=== PATIENT | female | born 1940 | race Caucasian/White ===

== ENCOUNTER 2022-06-17 11:20 | Inpatient (IN) | payer MEDICARE, BC ==
[~2022-06-17] VITALS: Ht 157.5 cm; Wt 59.0 kg
[2022-06-17] MEDS ORDERED: ATOR10TA PO (11:33)
[2022-06-17] MEDS ORDERED: AMLO2.5T2 PO (11:33)
[2022-06-17] MEDS ORDERED: ASPI-612 PO (11:33)
[2022-06-17] MEDS ORDERED: ESCI5TAB PO (11:33)
[2022-06-17] MEDS ORDERED: TRAZ-182 PO (11:33)
[2022-06-17] MEDS ORDERED: LIDO30CR TP (11:33)
[2022-06-17] MEDS ORDERED: METO-356 PO (11:42)
[2022-06-17] MEDS ORDERED: FLUT1DIS27 IH (11:42)
[2022-06-17] MEDS ORDERED: CHOL10005 PO (11:42)
[2022-06-17] MEDS ORDERED: IV NORMAL SALINE 1000 ML BAG IV ONE ×2 (12:15→13:45)
[2022-06-17 12:53] LABS: MEAN CORPUSCULAR HEMOGLOBIN 29.8 uug (24.7-32.8); MEAN CORPUSCULAR VOLUME 90.9 fL (75.5-95.3); PLATELET COUNT (AUTO) 719 K/uL (179-408)
[2022-06-17 13:03] LABS: CARBON DIOXIDE 27 mmol/L (21-32); CHLORIDE 97 mmol/L (98-107); CREATININE 0.8 mg/dL (0.6-1.3); GLUCOSE 111 mg/dL (74-106); POTASSIUM 2.9 mmol/L (3.5-5.1); UREA NITROGEN, BLOOD 6 mg/dL (7-18)
[2022-06-17 13:12] LABS: ALANINE AMINOTRANSFERASE 38 U/L (14-59); ALKALINE PHOSPHATASE 137 U/L (50-136); ASPARTATE AMINOTRANSFERASE 23 U/L (15-37); BILIRUBIN,DIRECT 0.3 mg/dL (0.0-0.2); BILIRUBIN,TOTAL 1.4 mg/dL (0.2-1.0); TOTAL PROTEIN, SERUM 8.4 g/dL (6.4-8.2)
[2022-06-17] MEDS ORDERED: POTASSIUM CHLORIDE 20 MEQ TAB.PRT.SR PO ONE ×3 (13:45→22:00)
[2022-06-17] MEDS ORDERED: CEFTRIAXONE 1 G in IV DEXTROSE 5% 50 ML IV ONE (13:45)
[2022-06-17] MEDS ORDERED: POTASSIUM CHLORIDE 20 MEQ TAB.PRT.SR ONE (13:47)
[2022-06-17] MEDS ORDERED: CEFTRIAXONE /D5W 50ML IVPB **ER PYXIS IV ONE (13:48)
[2022-06-17] MEDS ORDERED: POTASSIUM CHLORIDE 200 ML ONE (13:49)
[2022-06-17] MEDS: POTASSIUM CHLORIDE 50 ML IV SCH ×4 (13:54→16:45)
[2022-06-17 14:21] LABS: *BILIRUBIN,URIN NEGATIVE (NEGATIVE); *BLOOD, URINE 1+ (NEGATIVE); *CLARITY,URINE CLEAR (CLEAR); *COLOR,URINE YELLOW (YELLOW); *KETONES,URINE NEGATIVE (NEGATIVE); LEUKOCYTE ESTERASE ,URINE NEGATIVE (NEGATIVE); NITRITE, URINE NEGATIVE (NEGATIVE); UGLUCOSE NEGATIVE (NEGATIVE)
[2022-06-17] MEDS ORDERED: ONDANSETRON 4 MG/2 ML VIAL IV PRN (14:30)
[2022-06-17] MEDS ORDERED: MAGNESIUM HYDROXIDE 30 ML LIQUID UDC PO PRN (14:30)
[2022-06-17] MEDS: IV NS 1000 ML 1,000 ML IV PRN (16:22)
[2022-06-17 16:30] VITALS: BP_SYST 157; BP_SYST 164; BP_SYST 166; BP_DIAS 83; BP_DIAS 86; BP_DIAS 90
[2022-06-17 16:47] LABS: WBC,URINE 0-3 /HPF (0-3)
[2022-06-17] MEDS ORDERED: FLUTICASONE/SALMETEROL 100/50 1 INH DISK.W.DEV IH SCH (17:00)
[2022-06-17 20:00] VITALS: BP 148/70
[2022-06-17] MEDS: ATORVASTATIN 10 MG TABLET PO SCH (21:09)
[2022-06-17] MEDS: TRAZODONE 50 MG TABLET PO SCH (21:09)
[2022-06-17] MEDS: ENOXAPARIN SODIUM 40 MG/0.4 ML DISP.SYRIN SQ SCH (21:10)
[2022-06-18] VITALS: BP 150/72
[2022-06-18] MEDS: HYDROCODONE/APAP 5-325MG TABLET PO PRN ×2 (01:22→21:36)
[2022-06-18 04:00] VITALS: BP 144/72
[2022-06-18] MEDS: PANTOPRAZOLE SODIUM 40 MG TABLET.DR PO SCH (06:17)
[2022-06-18 07:14] LABS: MEAN CORPUSCULAR HEMOGLOBIN 29.9 uug (24.7-32.8); MEAN CORPUSCULAR VOLUME 90.8 fL (75.5-95.3); PLATELET COUNT (AUTO) 648 K/uL (179-408)
[2022-06-18 07:31] LABS: CREATININE 0.7 mg/dL (0.6-1.3); MAGNESIUM 1.7 mg/dL (1.8-2.4); PHOSPHOROUS 3.5 mg/dL (2.5-4.9); POTASSIUM 3.9 mmol/L (3.5-5.1)
[2022-06-18] MEDS: ESCITALOPRAM OXALATE 10 MG TABLET PO SCH (08:30)
[2022-06-18] MEDS: CHOLECALCIFEROL 1,000 UNIT TABLET PO SCH (08:31)
[2022-06-18] MEDS: FLUTICASONE/VILANTEROL 1 EACH BLST.W.DEV INH SCH (08:32)
[2022-06-18] MEDS: ASPIRIN 81 MG TAB.CHEW PO SCH (08:46)
[2022-06-18] MEDS ORDERED: ASPIRIN 325 MG TABLET PO SCH (09:00)
[2022-06-18] MEDS ORDERED: MAGNESIUM OXIDE 400 MG TABLET PO ONE (11:15)
[2022-06-18 11:57] VITALS: BP 140/66
[2022-06-18 16:00] VITALS: BP 152/83
[2022-06-18] MEDS: IV NS 1000 ML 1,000 ML IV PRN (17:56)
[2022-06-18 20:30] VITALS: BP 158/85
[2022-06-18] MEDS: ENOXAPARIN SODIUM 40 MG/0.4 ML DISP.SYRIN SQ SCH (20:32)
[2022-06-18] MEDS: ATORVASTATIN 10 MG TABLET PO SCH (20:32)
[2022-06-18] MEDS: TRAZODONE 50 MG TABLET PO SCH (20:32)
[2022-06-19 00:18] VITALS: BP 150/80
[2022-06-19 04:16] VITALS: BP 156/88
[2022-06-19] MEDS: HYDROCODONE/APAP 5-325MG TABLET PO PRN ×2 (05:36→20:12)
[2022-06-19] MEDS: PANTOPRAZOLE SODIUM 40 MG TABLET.DR PO SCH (06:07)
[2022-06-19 07:38] VITALS: BP 124/71
[2022-06-19] MEDS: ASPIRIN 81 MG TAB.CHEW PO SCH (08:12)
[2022-06-19] MEDS: CHOLECALCIFEROL 1,000 UNIT TABLET PO SCH (08:13)
[2022-06-19] MEDS: ESCITALOPRAM OXALATE 10 MG TABLET PO SCH (08:13)
[2022-06-19] MEDS: FLUTICASONE/VILANTEROL 1 EACH BLST.W.DEV INH SCH (08:13)
[2022-06-19 08:42] LABS: CARBON DIOXIDE 27 mmol/L (21-32); CHLORIDE 98 mmol/L (98-107); CREATININE 0.8 mg/dL (0.6-1.3); GLUCOSE 105 mg/dL (74-106); MAGNESIUM 1.6 mg/dL (1.8-2.4); POTASSIUM 3.3 mmol/L (3.5-5.1); UREA NITROGEN, BLOOD 8 mg/dL (7-18)
[2022-06-19] MEDS: MAGNESIUM SULFATE/D5W 100 ML IV SCH ×2 (09:56→10:56)
[2022-06-19] MEDS ORDERED: POTASSIUM CHLORIDE 20 MEQ TAB.PRT.SR PO ONE (10:00)
[2022-06-19] MEDS: ENSURE ENLIVE (VAN) 240 ML LIQUID PO SCH ×2 (12:24→16:09)
[2022-06-19 15:10] VITALS: BP 182/93
[2022-06-19] MEDS: ACETAMINOPHEN 325 MG TABLET PO PRN (15:35)
[2022-06-19 16:00] VITALS: BP 139/70
[2022-06-19] MEDS ORDERED: CLONIDINE HCL 0.2 MG TABLET PO ONE (16:00)
[2022-06-19] MEDS: IV NS 1000 ML 1,000 ML IV PRN (17:31)
[2022-06-19 20:00] VITALS: BP 145/74
[2022-06-19] MEDS: TRAZODONE 50 MG TABLET PO SCH (20:11)
[2022-06-19] MEDS: ENOXAPARIN SODIUM 40 MG/0.4 ML DISP.SYRIN SQ SCH (20:11)
[2022-06-19] MEDS: ATORVASTATIN 10 MG TABLET PO SCH (20:11)
[2022-06-19] MEDS: METOPROLOL TARTRATE 25 MG TABLET PO SCH (20:11)
[2022-06-20] VITALS: BP 137/70
[2022-06-20] MEDS: ACETAMINOPHEN 325 MG TABLET PO PRN (03:32)
[2022-06-20 04:00] VITALS: BP 150/80
[2022-06-20] MEDS: PANTOPRAZOLE SODIUM 40 MG TABLET.DR PO SCH (06:06)
[2022-06-20 07:04] LABS: CREATININE 0.7 mg/dL (0.6-1.3)
[2022-06-20 07:38] LABS: POTASSIUM 2.7 mmol/L (3.5-5.1)
[2022-06-20] MEDS: ENSURE ENLIVE (VAN) 240 ML LIQUID PO SCH (08:14)
[2022-06-20] MEDS: FLUTICASONE/VILANTEROL 1 EACH BLST.W.DEV INH SCH (08:14)
[2022-06-20] MEDS: ASPIRIN 81 MG TAB.CHEW PO SCH (08:15)
[2022-06-20] MEDS: CHOLECALCIFEROL 1,000 UNIT TABLET PO SCH (08:15)
[2022-06-20] MEDS: METOPROLOL TARTRATE 25 MG TABLET PO SCH (08:15)
[2022-06-20] MEDS: ESCITALOPRAM OXALATE 10 MG TABLET PO SCH (08:16)
[2022-06-20] MEDS: POTASSIUM CHLORIDE 50 ML IV SCH ×2 (11:00→12:17)
[2022-06-20] MEDS ORDERED: POTASSIUM CHLORIDE 20 MEQ TAB.PRT.SR PO ONE (11:00)
[2022-06-20 11:24] VITALS: BP 128/62
== END 2022-06-20 14:55 | DRG 563 ==
LOC: ER 11:20 → TELE3 15:00
DX: S63.591A Other specified sprain of right wrist, initial encounter (principal); E44.0 Moderate protein-calorie malnutrition; I95.9 Hypotension, unspecified; W18.30XA Fall on same level, unspecified, initial encounter; Y92.89 Other specified places as the place of occurrence of the external cause; E87.6 Hypokalemia; R53.1 Weakness; F03.90 Unspecified dementia, unspecified severity, without behavioral disturbance, psychotic disturbance, mood disturbance, and anxiety; F32.A Depression, unspecified; Z20.822 Contact with and (suspected) exposure to COVID-19; I10 Essential (primary) hypertension; J45.909 Unspecified asthma, uncomplicated; Z88.0 Allergy status to penicillin; Z79.82 Long term (current) use of aspirin; E78.5 Hyperlipidemia, unspecified; Z79.899 Other long term (current) drug therapy; Z68.23 Body mass index [BMI] 23.0-23.9, adult; M19.031 Primary osteoarthritis, right wrist; M11.231 Other chondrocalcinosis, right wrist
CPT/HCPCS: 36415; 71045; 73110; 73200; 83605; 83735; 84100; 84484; 85025; 86850; 86900; 86901; 87040; 93005; A4663; G0378; J0696; J1650; J3475; J3480; J7040

== ENCOUNTER 2022-07-31 18:01 | Inpatient (IN) | payer MEDICARE, BC ==
[~2022-07-31] VITALS: Ht 160 cm; Wt 61.2 kg
[~2022-07-31 18:01] MED LIST: AMLO2.5T2 PO; ASPI-612 PO; ATOR10TA PO; CHOL10005 PO; FLUT1DIS27 IH
--- NOTE | 2022-07-31 18:37 | NUR ---
seen and examined by MD Rhodes
[2022-07-31] MEDS ORDERED: LIDOCAINE HCL 2% 20 ML VIAL IJ ONE (19:45)
[2022-07-31] MEDS ORDERED: methylPREDNISolone ACETATE 40 MG VIAL MC ONE (19:45)
[2022-07-31] MEDS ORDERED: LIDOCAINE HCL 2% 20 ML VIAL ONE (19:58)
[2022-07-31 20:17] LABS: HEMATOCRIT 47.4 % (31.2-41.9); MEAN CORPUSCULAR HEMOGLOBIN 27.7 uug (24.7-32.8); PLATELET COUNT (AUTO) 670 K/uL (179-408)
[2022-07-31] MEDS ORDERED: methylPREDNISolone SOD SUCC 40 MG/ML VIAL ONE (20:17)
--- NOTE | 2022-07-31 20:22 | NUR ---
PATIENT RESTING IN BED, INFORMED OF PLAN OF CARE, ASSISTED ON BEDPAN SEVERAL TIMES AND REPOSITIONED FOR COMFORT. AWAITING MD BEDSIDE PROCEDURE. NO S/S OF ANY DISTRESS NOTED, PATIENT IS FORGETFUL AND REORIENTED NEEDED.
[2022-07-31 20:26] LABS: CREATININE 0.8 mg/dL (0.6-1.3)
[2022-07-31 20:27] LABS: POTASSIUM 2.8 mmol/L (3.5-5.1)
[2022-07-31 20:33] LABS: MAGNESIUM 1.5 mg/dL (1.8-2.4)
[2022-07-31] MEDS ORDERED: IV NS 1000 ML 1,000 ML IV ONE (21:00)
[2022-07-31] MEDS ORDERED: POTASSIUM BICARBONATE/CIT AC 25 MEQ TABLET.EFF PO ONE (21:00)
[2022-07-31 21:06] LABS: IRON, SERUM 24 ug/dL (50-175)
[2022-07-31] MEDS ORDERED: POTASSIUM BICARBONATE/CIT AC 25 MEQ TABLET.EFF ONE (21:30)
[2022-07-31] MEDS ORDERED: MAGNESIUM SULFATE/D5W 100 ML ONE (21:30)
[2022-07-31] MEDS: MAGNESIUM SULFATE/D5W 100 ML IV SCH ×2 (21:31→23:04)
[2022-07-31 21:59] LABS: NEUTROPHILS % (MANUAL) 0 % (42-75)
--- NOTE | 2022-07-31 22:01 | NUR ---
EPIC CALLED AT THIS TIME, I&O CATH PLACED FOR URINE COLLECTION, WILL BE SENT TO LAB, IVF INFUSING PER ORDER.
[2022-07-31 22:42] LABS: *BILIRUBIN,URIN NEGATIVE (NEGATIVE); *BLOOD, URINE 1+ (NEGATIVE); *CLARITY,URINE CLEAR (CLEAR); *COLOR,URINE YELLOW (YELLOW); *KETONES,URINE 1+ (NEGATIVE); LEUKOCYTE ESTERASE ,URINE NEGATIVE (NEGATIVE); NITRITE, URINE NEGATIVE (NEGATIVE); PH,URINE 6.5 (5.0-8.0); UGLUCOSE NEGATIVE (NEGATIVE)
--- NOTE | 2022-07-31 23:25 | NUR ---
FAMILY WAS AT BEDSIDE UPDATED ON PLAN OF CARE, AWARE WILL BE ADMITTED TO THE HOSPITAL, AWAITING ROOM ASSIGNMENT.
[2022-07-31 23:27] LABS: BACTERIA,URINE NONE SEEN /HPF (NONE SEEN); SQUAMOUS EPITHELIAL CELL,UR FEW /HPF (NONE SEEN); WBC,URINE 0-3 /HPF (0-3)
--- NOTE | 2022-07-31 23:58 | NUR ---
Received constanzain report from Jennifer. AGRONOMY RESEARCH MANAGER,.
--- NOTE | 2022-08-01 00:02 | NUR ---
Report given to accepting nurse, patient remains stable for transport yo unit.
--- NOTE | 2022-08-01 00:30 | NUR ---
Patient arrived in the unit via gurney, accompanied by ER nurse. Awake, alert and oriented to name, and situation. Able to assist in transfer activity by sliding self from gurney to bed. Noted some weakness on RLE due to s/p fluid aspiration done in ER with slight blood stain noted and complaint of mild pain on affected area on flexion/movement activity. Made comfortable in bed. Oriented to the room, staff, call light, TV remote control, and bed control. Safety measures and fall prevention initiated. Routine admission care done. Plan of care initiated.
[2022-08-01 00:57] VITALS: BP 189/96
[2022-08-01] MEDS ORDERED: ONDANSETRON 4 MG/2 ML VIAL IV PRN (01:00)
[2022-08-01] MEDS ORDERED: PIPERACILLIN/TAZOBACTAM/D5W 50 ML IV ONE (01:15)
[2022-08-01] MEDS ORDERED: IV 0.9% SODIUM CHLORID+ 20 KCL 1,000 ML ONE (01:17)
[2022-08-01] MEDS ORDERED: PIPERACILLIN SODIUM/TAZOBACTAM 3.375 G in IV DEXTROSE 5% 50 ML IV ONE (01:30)
[2022-08-01] MEDS ORDERED: VANCOMYCIN IV 1,000 MG in IV DEXTROSE 5% 250 ML IV ONE (01:30)
[2022-08-01] MEDS: MORPHINE SULFATE 2 MG/1 ML DISP.SYRIN IV PRN ×3 (01:35→23:30)
--- NOTE | 2022-08-01 01:35 | NUR ---
Morphine 1 mg IVP given as ordered for complaint of right knee pain in scale 8/10. Will monitor.
[2022-08-01] MEDS: POTASSIUM CHLORIDE 20 MEQ in IV NS 1000 ML 1,000 ML IV SCH (01:48)
--- NOTE | 2022-08-01 01:50 | NUR ---
Zosyn IV ATB initiated as ordered. Will monitor possible adverse reaction.
--- NOTE | 2022-08-01 02:04 | NUR ---
Patient sleeping quietly at this time. VS taken 144/69, 108, 18.
[2022-08-01] MEDS ORDERED: VANCOMYCIN IV 200 ML ONE (02:09)
[2022-08-01 02:10] VITALS: BP 144/69
[2022-08-01 05:00] VITALS: BP 168/105
--- NOTE | 2022-08-01 05:20 | NUR ---
Sitting at the edge of bed, complaining of right knee pain in scale of 8/10, morphine 1 mg IVP given as needed. Will monitor.
[2022-08-01 06:29] LABS: HEMATOCRIT 43.3 % (31.2-41.9); MEAN CORPUSCULAR HEMOGLOBIN 28.4 uug (24.7-32.8); PLATELET COUNT (AUTO) 640 K/uL (179-408)
[2022-08-01 07:05] LABS: THYROID STIMULATING HORMONE 0.801 mIU/mL (0.358-3.740)
[2022-08-01 07:08] LABS: ALANINE AMINOTRANSFERASE 34 U/L (14-59); ALKALINE PHOSPHATASE 84 U/L (50-136); ASPARTATE AMINOTRANSFERASE 29 U/L (15-37); BILIRUBIN,TOTAL 0.9 mg/dL (0.2-1.0); CARBON DIOXIDE 26 mmol/L (21-32); CHLORIDE 95 mmol/L (98-107); CHOLESTEROL 92 mg/dL (<200); CREATININE 0.6 mg/dL (0.6-1.3); GLUCOSE 205 mg/dL (74-106); HDL CHOLESTEROL 47 mg/dL (40-60); MAGNESIUM 1.7 mg/dL (1.8-2.4); PHOSPHOROUS 3.2 mg/dL (2.5-4.9); POTASSIUM 3.4 mmol/L (3.5-5.1); TRIGLYCERIDES 23 MG/DL (30-150); UREA NITROGEN, BLOOD 6 mg/dL (7-18)
[2022-08-01 07:30] LABS: IRON, SERUM 11 ug/dL (50-175)
[2022-08-01] MEDS: PANTOPRAZOLE SODIUM 40 MG TABLET.DR PO SCH (08:21)
[2022-08-01] MEDS: ASPIRIN 81 MG TAB.CHEW PO SCH (08:21)
[2022-08-01] MEDS: CHOLECALCIFEROL 1,000 UNIT TABLET PO SCH (08:21)
[2022-08-01] MEDS: AMLODIPINE 10 MG TABLET PO SCH (08:25)
[2022-08-01] MEDS: METOPROLOL TARTRATE 25 MG TABLET PO SCH ×2 (08:25→20:59)
[2022-08-01] MEDS ORDERED: Medication Not On Formulary EA (Cholecalciferol (Vitamin D3) (Vitamin D3) 1 CAP) PO SCH (09:00)
[2022-08-01] MEDS ORDERED: FLUTICASONE/SALMETEROL 100/50 1 INH DISK.W.DEV IH SCH (09:00)
[2022-08-01] MEDS ORDERED: ASPIRIN 325 MG TABLET PO SCH (09:00)
[2022-08-01] MEDS: PIPERACILLIN SODIUM/TAZOBACTAM 3.375 G in IV DEXTROSE 5% 100 ML IV SCH ×2 (09:38→17:24)
[2022-08-01 11:04] VITALS: BP 142/73
[2022-08-01] MEDS: FLUTICASONE/VILANTEROL 1 EACH BLST.W.DEV INH SCH (11:11)
--- NOTE | 2022-08-01 13:20 | NUR ---
CALLED TO ROOM BY ROB AND JOSE MARTIN MICHAEL. PATIENT FOUND SITTING ON FLOOR, BLEEDING FROM RIGHT HAND IV SITE. ANGIOCATH FOUND ON FLOOR. CLEANED PATIENT, AND ASSISTED HER BACK TO BED. BED ALARM ON. VERY CONFUSED AND FORGETFUL.
[2022-08-01] MEDS ORDERED: POTASSIUM CHLORIDE 10 MEQ TAB.PRT.SR PO ONE (13:30)
[2022-08-01] MEDS ORDERED: POTASSIUM CHLORIDE 20 MEQ TAB.PRT.SR PO ONE (13:45)
[2022-08-01] MEDS ORDERED: PIPERACILLIN SODIUM/TAZOBACTAM 3.375 G in IV DEXTROSE 5% 50 ML IV SCH (14:00)
[2022-08-01] MEDS ORDERED: MAGNESIUM OXIDE 400 MG TABLET PO ONE (14:00)
--- NOTE | 2022-08-01 14:00 | NUR ---
Jose Beaulieu notified about patients fall
[2022-08-01] MEDS: VANCOMYCIN IV 500 MG in IV DEXTROSE 5% 100 ML IV SCH (14:45)
[2022-08-01 15:14] VITALS: BP 95/57
--- NOTE | 2022-08-01 17:00 | NUR ---
Requested a restraint order for the patient if it should become necessary during the night.
--- NOTE | 2022-08-01 17:45 | NUR ---
Patient's son informed about the patient falling and that she has been trying to climb out of the bed during the day. Her son said that she has been trying to do that for a few days and that is how she fell previously and injured her knee.
--- NOTE | 2022-08-01 19:30 | NUR ---
Received patient lying in bed. AAOx2-3. In no acute distress. IV site on right hand intact and patent. NSR on tele with HR of 96/min. IV antibiotics infusing at this time. Bilateral soft wrist restraint remove at this time as patient is calm. Safety measure initiated and call light within reached. Will continue to monitor.
[2022-08-01] MEDS: ATORVASTATIN 10 MG TABLET PO SCH (20:27)
[2022-08-02] MEDS: VANCOMYCIN IV 500 MG in IV DEXTROSE 5% 100 ML IV SCH ×2 (01:05→14:40)
[2022-08-02] MEDS: PIPERACILLIN SODIUM/TAZOBACTAM 3.375 G in IV DEXTROSE 5% 100 ML IV SCH ×3 (02:16→18:11)
[2022-08-02] MEDS: PANTOPRAZOLE SODIUM 40 MG TABLET.DR PO SCH (06:06)
--- NOTE | 2022-08-02 06:28 | NUR ---
No adverse effect noted from IV antibiotics. IVF infusing. NSR on tele with HR of 90/min. Assisted to toilet ad jose. IV site on right hand remains intact and patent. Needs attended to and met. Safety measure maintained and call light within reached.
[2022-08-02 07:26] LABS: CARBON DIOXIDE 28 mmol/L (21-32); CHLORIDE 98 mmol/L (98-107); CREATININE 0.8 mg/dL (0.6-1.3); GLUCOSE 127 mg/dL (74-106); MAGNESIUM 1.8 mg/dL (1.8-2.4); POTASSIUM 3.5 mmol/L (3.5-5.1); UREA NITROGEN, BLOOD 10 mg/dL (7-18)
[2022-08-02 08:00] VITALS: BP 108/51
[2022-08-02] MEDS: AMLODIPINE 10 MG TABLET PO SCH (09:00)
[2022-08-02] MEDS: CHOLECALCIFEROL 1,000 UNIT TABLET PO SCH (09:09)
[2022-08-02] MEDS: FLUTICASONE/VILANTEROL 1 EACH BLST.W.DEV INH SCH (09:09)
[2022-08-02] MEDS: ASPIRIN 81 MG TAB.CHEW PO SCH (09:09)
[2022-08-02] MEDS: METOPROLOL TARTRATE 25 MG TABLET PO SCH ×2 (09:17→21:16)
[2022-08-02] MEDS: POTASSIUM CHLORIDE 20 MEQ in IV NS 1000 ML 1,000 ML IV SCH (09:19)
--- NOTE | 2022-08-02 09:32 | NUR ---
pt desat to 88%. pt was put on nasal cannula at 3L oxygenation improved O2 sat @ 95%.
[2022-08-02 12:00] VITALS: BP 141/77
[2022-08-02] MEDS: SOD FERRIC GLUC COMPLX/SUCROSE 125 MG in IV NORMAL SALINE 100 ML IV SCH (15:52)
[2022-08-02 16:00] VITALS: BP 149/78
--- NOTE | 2022-08-02 17:53 | NUR ---
pt aox2-3. forgetfull. in no acute distress. pt off restraint the whole day. no agitation noted. pt ambulatory with fww w/ steady gait. pt still on abx tx. awaiting for joint fluid culture. id consult f/u. left a message to dr. alexander for f/u consult but did not reply. all needs attended. safety precautino maintained. bed locked. will endorsed to noc shift.
[2022-08-02 19:13] LABS: *OCCULT BLOOD STOOL NEGATIVE (NEGATIVE)
[2022-08-02 20:12] VITALS: BP 163/85
[2022-08-02] MEDS: ATORVASTATIN 10 MG TABLET PO SCH (21:15)
[2022-08-02] MEDS: VANCOMYCIN IV 750 MG in IV DEXTROSE 5% 250 ML IV SCH (22:03)
[2022-08-03] VITALS: BP 168/90
--- NOTE | 2022-08-03 00:26 | NUR ---
BP-193/88 no complain of chest pain, asymptomatic. Reported to Jarrod Mcnamara NP with new order Hydralazine 10MG IV.
[2022-08-03] MEDS ORDERED: hydrALAZINE HCL 20 MG/1 ML VIAL IV PRN (01:15)
[2022-08-03] MEDS: PIPERACILLIN SODIUM/TAZOBACTAM 3.375 G in IV DEXTROSE 5% 100 ML IV SCH (02:06)
[2022-08-03 04:49] VITALS: BP 173/79
[2022-08-03] MEDS: PANTOPRAZOLE SODIUM 40 MG TABLET.DR PO SCH (06:28)
[2022-08-03] MEDS ORDERED: FUROSEMIDE 40 MG/4 ML VIAL IV ONE (06:30)
[2022-08-03 07:06] LABS: HEMATOCRIT 45.6 % (31.2-41.9); MEAN CORPUSCULAR HEMOGLOBIN 28.2 uug (24.7-32.8); MEAN CORPUSCULAR VOLUME 84.5 fL (75.5-95.3); PLATELET COUNT (AUTO) 752 K/uL (179-408)
[2022-08-03 07:21] LABS: CREATININE 0.8 mg/dL (0.6-1.3); MAGNESIUM 1.7 mg/dL (1.8-2.4); PHOSPHOROUS 3.1 mg/dL (2.5-4.9); POTASSIUM 3.4 mmol/L (3.5-5.1)
--- NOTE | 2022-08-03 08:00 | NUR ---
PATIENT IS CONFUSED AND DISORIENTED ATTEMPTING TO GET OUT OF BED UNASSISTED AT RISKS FOR FALL BED ALARM IS IN USE CALL LIGHT GIVEN TO BED AND EDUCATED HER ON THE USE TO CALL FOR HELP EXPRESSED UNDERSTANDING BUT NEXT MINUTE SEEN GETTING OUT OF BED IV SITE ON HER RIGHT FA IS VERY POSITIONAL WITH MULTIPLE BRUISES MD AWARE STATED TO INSERT A MID LINE AND NOTED.PAO WRIST RESTRAINTS IS IN HOLD AT THE MOMENT PATIENT GETS MORE RESTLESS AND AGITATED WILL LEAVE OFF RESTRAINTS AND WILL OBSERVE.
[2022-08-03] MEDS: ASPIRIN 81 MG TAB.CHEW PO SCH (08:51)
[2022-08-03] MEDS: LOSARTAN POTASSIUM 50 MG TABLET PO SCH (08:51)
[2022-08-03] MEDS: CHOLECALCIFEROL 1,000 UNIT TABLET PO SCH (08:51)
[2022-08-03] MEDS: FLUTICASONE/VILANTEROL 1 EACH BLST.W.DEV INH SCH (08:52)
[2022-08-03] MEDS: METOPROLOL TARTRATE 25 MG TABLET PO SCH ×2 (08:52→20:15)
[2022-08-03] MEDS: AMLODIPINE 10 MG TABLET PO SCH (08:52)
[2022-08-03] MEDS: VANCOMYCIN IV 750 MG in IV DEXTROSE 5% 250 ML IV SCH ×2 (09:02→23:00)
[2022-08-03] MEDS ORDERED: MAGNESIUM OXIDE 400 MG TABLET PO ONE (11:00)
[2022-08-03] MEDS ORDERED: POTASSIUM CHLORIDE 20 MEQ TAB.PRT.SR PO ONE ×3 (11:00→14:00)
[2022-08-03 11:31] VITALS: BP 119/65
[2022-08-03] MEDS: MORPHINE SULFATE 2 MG/1 ML DISP.SYRIN IV PRN (11:56)
[2022-08-03] MEDS ORDERED: MAGNESIUM SULFATE/D5W 100 ML IV SCH (12:15)
--- NOTE | 2022-08-03 12:30 | NUR ---
DR. MIXON HERE & ASPIRATED RIGHT KNEE. SPEC. TO LAB.
--- NOTE | 2022-08-03 13:00 | NUR ---
PATIENTS HERE VERY AGGRESSIVE WANTS THE WRIST RESTRAINTS REMOVED REMINDED THAT THAT HE HAS BEEN AGGRESSIVE KICKED A NURSE PULLED OUT HIS IVS TRIES TO GET OUT OF BED PATIENT WANTS TO GO TO THE BATHROOM AND WE ASSISTED HIM INTO THE BATHROOM PATIENTS STATED THAT SHE WILL BE HERE SO MEANWHILE WE LEFT THE RESTRAINTS OFF. Addendum: 08/03/22 at 1455 by AMADEO CALLOWAY RN WRONG PATIENT WRONG ENTRY
[2022-08-03] MEDS: PIPERACILLIN SODIUM/TAZOBACTAM 3.375 G in IV DEXTROSE 5% 50 ML IV SCH ×2 (13:16→18:31)
[2022-08-03] MEDS: SOD FERRIC GLUC COMPLX/SUCROSE 125 MG in IV NORMAL SALINE 100 ML IV SCH (13:59)
--- NOTE | 2022-08-03 15:04 | NUR ---
PATIENTS DAUGHTER YOLIS IS HERE WRIST RESTRAINTS REMAINS OFF AND SHE IS VISITING WITH HER AND ASSISTING HER NEEDED.
[2022-08-03 15:22] VITALS: BP 118/60
--- NOTE | 2022-08-03 18:00 | NUR ---
PATIENTS DAUGHTER YOLIS STILL HERE AND KEEPING HER [employer] RESTRAINTS STILL ON HOLD AT THIS TIME.WILL CONTINUE TO OBSERVE.
[2022-08-03] MEDS: ATORVASTATIN 10 MG TABLET PO SCH (20:15)
[2022-08-03 20:25] VITALS: BP 146/75
[2022-08-03 22:29] VITALS: BP 139/72
--- NOTE | 2022-08-03 22:30 | NUR ---
Seen pt laying on bed. Alert and Oriented x3. Slow to speech but answers correctly. Per , pt is unable to recognize his children. is stating that it could be stroke. Assessed pt for stroke, no slurred speech, no facial drooping, no numbness or weakness, able to follow commands, able to answer how many fingers, no blurring of vision, able to ambulate to the bathroom, no imbalance noted. Vital signs are stable. No changes on Tele. SR with HR of 92. Another RN did the assessment as well. Christofer RAMIREZ made aware. Ordered for Stat CT head, CXR and labs. Called Xray electronic calibration technician for stat CT head, spoke to Abhijeet, Called lab for stat labs. Explained to the what the doctor ordered for the pt. is asking to be transferred to a different hospital, explained to her the process, also spoke to supervisor precision optical elements, explained the process of transfer again. is calling patient's insurance. Aircraft Painter Apprentice also did the Neuro check. Pt is still able to answer the questions correctly and no weakness noted. Will continue to monitor. All needs attended. Safety precautions maintained. Addendum: 08/04/22 at 0225 by ERICK MCGARRY RN INCORRECT PATIENT
[2022-08-04] MEDS: PIPERACILLIN SODIUM/TAZOBACTAM 3.375 G in IV DEXTROSE 5% 50 ML IV SCH ×4 (00:52→18:26)
[2022-08-04 04:12] VITALS: BP 149/75
--- NOTE | 2022-08-04 05:18 | NUR ---
Slept intermittently. Assisted pt to the bathroom through out the night, able to walk in steady gait. Antibiotics given as ordered. No adverse reaction noted. Wrist restraints remained off. Denies any pain or discomfort. All needs attended. Safety precautions maintained.
[2022-08-04] MEDS: PANTOPRAZOLE SODIUM 40 MG TABLET.DR PO SCH (06:14)
--- NOTE | 2022-08-04 08:30 | NUR ---
RECEIVED PATIENT IN BED AWAKE MORE ALERT TODAY DENIES DISCOMFORTS ON ROOM AIR WITH NO SHORTNESS OF BREATH AT THIS TIME MID LINE WRAPPED AND INTACT CALL LIGHT AND PERSOANL BELONGINGS ARE WITHIN EASY REACH WILL CONTINUE TO OBSERVE.
[2022-08-04] MEDS: ASPIRIN 81 MG TAB.CHEW PO SCH (08:36)
[2022-08-04] MEDS: CHOLECALCIFEROL 1,000 UNIT TABLET PO SCH (08:36)
[2022-08-04] MEDS: FLUTICASONE/VILANTEROL 1 EACH BLST.W.DEV INH SCH (08:36)
[2022-08-04] MEDS: AMLODIPINE 10 MG TABLET PO SCH (08:37)
[2022-08-04] MEDS: LOSARTAN POTASSIUM 50 MG TABLET PO SCH (08:39)
[2022-08-04] MEDS: METOPROLOL TARTRATE 25 MG TABLET PO SCH ×2 (08:39→21:09)
[2022-08-04 09:18] LABS: CARBON DIOXIDE 25 mmol/L (21-32); CHLORIDE 96 mmol/L (98-107); GLUCOSE 162 mg/dL (74-106); MAGNESIUM 1.9 mg/dL (1.8-2.4); POTASSIUM 3.8 mmol/L (3.5-5.1); UREA NITROGEN, BLOOD 13 mg/dL (7-18)
[2022-08-04 12:00] VITALS: BP 146/58
--- NOTE | 2022-08-04 12:00 | NUR ---
CONTINUE WITH IV ANTIBIOTICS ORDERED WITH NO ADVERSE OR ALLERGIC REACTIONS AT THIS TIME MADE COMFORTABLE WILL CONTINUE TO OBSERVE.
[2022-08-04] MEDS: SOD FERRIC GLUC COMPLX/SUCROSE 125 MG in IV NORMAL SALINE 100 ML IV SCH (14:10)
--- NOTE | 2022-08-04 15:47 | NUR ---
PATIENT SEEN AND EXAMINED BY ROLAND GEORGES WITH NEW ORDERS AND NOTED
[2022-08-04 16:02] VITALS: BP 148/62
--- NOTE | 2022-08-04 18:00 | NUR ---
ALERT BUT STILL CONFUSED AND DISORIENTED MANY ATTEMPTS GETTING OUT OF BED UNASSISTED AT RISKS FOR FALL EASILY REDIRECTABLE BUT FORGETS AND GETS OUT OF BED AGAIN BED ALARM IS IN USE FOR HER SAFETY WILL CONTINUE TO OBSERVE.
[2022-08-04 20:15] VITALS: BP 116/62
[2022-08-04] MEDS: VANCOMYCIN IV 500 MG in IV DEXTROSE 5% 100 ML IV SCH (21:00)
[2022-08-04] MEDS: ATORVASTATIN 10 MG TABLET PO SCH (21:09)
[2022-08-05 00:07] VITALS: BP 138/71
[2022-08-05] MEDS: PIPERACILLIN SODIUM/TAZOBACTAM 3.375 G in IV DEXTROSE 5% 50 ML IV SCH ×4 (00:44→18:49)
[2022-08-05 04:10] VITALS: BP 149/71
[2022-08-05] MEDS: PANTOPRAZOLE SODIUM 40 MG TABLET.DR PO SCH (06:13)
[2022-08-05 07:29] LABS: HEMATOCRIT 44.6 % (31.2-41.9); MEAN CORPUSCULAR HEMOGLOBIN 27.9 uug (24.7-32.8); MEAN CORPUSCULAR VOLUME 84.5 fL (75.5-95.3); PLATELET COUNT (AUTO) 703 K/uL (179-408)
--- NOTE | 2022-08-05 07:30 | NUR ---
REPORT GIVEN TO JOSE MARTIN MICHAEL
[2022-08-05 07:33] LABS: CARBON DIOXIDE 28 mmol/L (21-32); CHLORIDE 100 mmol/L (98-107); CREATININE 0.8 mg/dL (0.6-1.3); GLUCOSE 107 mg/dL (74-106); MAGNESIUM 1.8 mg/dL (1.8-2.4); PHOSPHOROUS 3.2 mg/dL (2.5-4.9); POTASSIUM 3.3 mmol/L (3.5-5.1); UREA NITROGEN, BLOOD 12 mg/dL (7-18)
[2022-08-05] MEDS: VANCOMYCIN IV 500 MG in IV DEXTROSE 5% 100 ML IV SCH ×2 (08:50→20:02)
[2022-08-05] MEDS: AMLODIPINE 10 MG TABLET PO SCH (08:50)
[2022-08-05] MEDS: CHOLECALCIFEROL 1,000 UNIT TABLET PO SCH (08:50)
[2022-08-05] MEDS: FLUTICASONE/VILANTEROL 1 EACH BLST.W.DEV INH SCH (08:50)
[2022-08-05] MEDS: METOPROLOL TARTRATE 25 MG TABLET PO SCH ×2 (08:51→20:10)
[2022-08-05] MEDS: LOSARTAN POTASSIUM 50 MG TABLET PO SCH (08:51)
[2022-08-05] MEDS: ASPIRIN 81 MG TAB.CHEW PO SCH (09:14)
[2022-08-05] MEDS ORDERED: POTASSIUM CHLORIDE 20 MEQ TAB.PRT.SR PO ONE (10:00)
[2022-08-05 11:36] VITALS: BP 149/73
[2022-08-05 16:09] VITALS: BP 138/78
[2022-08-05] MEDS: ATORVASTATIN 10 MG TABLET PO SCH (20:10)
[2022-08-05 20:29] VITALS: BP 115/64
[2022-08-06 00:17] VITALS: BP 152/65
[2022-08-06] MEDS: PIPERACILLIN SODIUM/TAZOBACTAM 3.375 G in IV DEXTROSE 5% 50 ML IV SCH ×3 (01:31→13:16)
--- NOTE | 2022-08-06 03:44 | NUR ---
Patient left upper arm midline pulled out, patient restless, does not want to stay in bed, and forget to call for assist, removed the midline with tip intact, reinsert peripheral iv line on right forearm 22 gauge, tolerate well.
[2022-08-06 04:00] VITALS: BP 132/75
[2022-08-06] MEDS: ACETAMINOPHEN 325 MG TABLET PO PRN ×2 (05:35→20:14)
[2022-08-06] MEDS: PANTOPRAZOLE SODIUM 40 MG TABLET.DR PO SCH (06:00)
[2022-08-06 07:36] LABS: HEMATOCRIT 45.9 % (31.2-41.9); MEAN CORPUSCULAR HEMOGLOBIN 27.7 uug (24.7-32.8); MEAN CORPUSCULAR VOLUME 84.7 fL (75.5-95.3); PLATELET COUNT (AUTO) 688 K/uL (179-408)
[2022-08-06 07:56] LABS: CARBON DIOXIDE 25 mmol/L (21-32); CHLORIDE 100 mmol/L (98-107); CREATININE 0.8 mg/dL (0.6-1.3); GLUCOSE 115 mg/dL (74-106); MAGNESIUM 1.9 mg/dL (1.8-2.4); PHOSPHOROUS 3.2 mg/dL (2.5-4.9); POTASSIUM 3.5 mmol/L (3.5-5.1); UREA NITROGEN, BLOOD 10 mg/dL (7-18)
--- NOTE | 2022-08-06 08:00 | NUR ---
Received pt. lying in bed awake, alert and oriented. Not in distress, SR on tele monitor. On room air saturating at 95%, no complain of pain. Vital signs stable. Needs attended
[2022-08-06] MEDS: CHOLECALCIFEROL 1,000 UNIT TABLET PO SCH (08:28)
[2022-08-06] MEDS: LOSARTAN POTASSIUM 50 MG TABLET PO SCH (08:28)
[2022-08-06] MEDS: AMLODIPINE 10 MG TABLET PO SCH (08:28)
[2022-08-06] MEDS: METOPROLOL TARTRATE 25 MG TABLET PO SCH ×2 (08:29→20:14)
[2022-08-06] MEDS: GLUCERNA SHAKE 237 ML CAN PO SCH (08:29)
[2022-08-06] MEDS: FLUTICASONE/VILANTEROL 1 EACH BLST.W.DEV INH SCH (09:15)
[2022-08-06] MEDS: VANCOMYCIN IV 500 MG in IV DEXTROSE 5% 100 ML IV SCH ×2 (09:15→20:13)
[2022-08-06] MEDS: ASPIRIN 81 MG TAB.CHEW PO SCH (09:16)
[2022-08-06 11:25] VITALS: BP 126/56
--- NOTE | 2022-08-06 12:00 | NUR ---
Medications taken and recorded. No acute changes. Observed accordingly
--- NOTE | 2022-08-06 13:00 | NUR ---
Seen and examined by [employer] SOFTWARE ENGINEER [employer], continue care plan.
[2022-08-06 15:13] VITALS: BP 114/72
[2022-08-06] MEDS ORDERED: CEFTRIAXONE 2 G in IV DEXTROSE 5% 100 ML IV SCH (18:00)
[2022-08-06] MEDS ORDERED: TRAZ-182 PO (18:25)
[2022-08-06] MEDS ORDERED: CHOL100062 PO (18:25)
[2022-08-06] MEDS ORDERED: ASPI1TAB2 PO (18:25)
[2022-08-06] MEDS ORDERED: ACET325C7 PO (18:25)
[2022-08-06] MEDS ORDERED: METO25TA6 PO (18:25)
[2022-08-06] MEDS ORDERED: ASPI-1420 PO (18:25)
[2022-08-06] MEDS ORDERED: LIDO30AD10 TD (18:25)
[2022-08-06] MEDS ORDERED: BUPR-53 PO (18:25)
[2022-08-06] MEDS ORDERED: ATOR10TA PO (18:25)
[2022-08-06] MEDS ORDERED: FLUT1DIS28 IH (18:25)
[2022-08-06] MEDS ORDERED: DICLOFENAC GEL (18:25)
[2022-08-06] MEDS ORDERED: Medication Not On Formulary EA (Acetaminophen (Tylenol) 650 MG) PO SCH (19:00)
--- NOTE | 2022-08-06 19:45 | NUR ---
rounds made patient awake ,alert [id number] . no respiratory distress noted on room air . patient daughter at b/s visiting patient questions answered and updated her with patient condition .
[2022-08-06 20:00] VITALS: BP 141/76
--- NOTE | 2022-08-06 20:13 | NUR ---
due antibiotic given see emar .
[2022-08-06] MEDS: ATORVASTATIN 10 MG TABLET PO SCH (20:17)
[2022-08-06] MEDS ORDERED: TRAZODONE 50 MG TABLET PO SCH (21:00)
[2022-08-06] MEDS ORDERED: ATORVASTATIN 10 MG TABLET PO SCH (21:00)
[2022-08-06] MEDS ORDERED: TEMAZEPAM 7.5 MG CAPSULE PO SCH (21:00)
--- NOTE | 2022-08-06 22:30 | NUR ---
patient in bed sleeping . no s/s of any distress . easily arousable .
[2022-08-07] VITALS: BP 96/41
--- NOTE | 2022-08-07 02:05 | NUR ---
escorted to the bathroom patient able to walked voided , back to bed . call light placed with reach and advised patient to call for assistance .
[2022-08-07 04:00] VITALS: BP 129/71
--- NOTE | 2022-08-07 05:27 | NUR ---
ambulated patient to the bathroom 1 person Assist voided .fitness and wellness manager at b/s changed soiled linens and gown .
[2022-08-07] MEDS: PANTOPRAZOLE SODIUM 40 MG TABLET.DR PO SCH (06:09)
--- NOTE | 2022-08-07 08:00 | NUR ---
RECEIVED PATIENT AWAKE ALERT AND ORIENTED X3 DENIES PAIN OR SOB SR ON MONITOR. NOTED PATIENT VERY INDEPENDENT WITH WALKING, STEADY GAIT. WILL CONTINUE TO OBSERVE
[2022-08-07] MEDS ORDERED: DOXY-226 PO (08:49)
[2022-08-07] MEDS ORDERED: LEVO500T90 PO (08:49)
[2022-08-07] MEDS: VANCOMYCIN IV 500 MG in IV DEXTROSE 5% 100 ML IV SCH (08:54)
[2022-08-07] MEDS: FLUTICASONE/VILANTEROL 1 EACH BLST.W.DEV INH SCH (08:55)
[2022-08-07] MEDS: CHOLECALCIFEROL 1,000 UNIT TABLET PO SCH (08:56)
[2022-08-07] MEDS: ASPIRIN 81 MG TAB.CHEW PO SCH (08:57)
[2022-08-07] MEDS: GLUCERNA SHAKE 237 ML CAN PO SCH (08:59)
[2022-08-07] MEDS ORDERED: FLUTICASONE/VILANTEROL 1 EACH BLST.W.DEV INH SCH (09:00)
[2022-08-07] MEDS ORDERED: CHOLECALCIFEROL 1,000 UNIT TABLET PO SCH (09:00)
[2022-08-07] MEDS ORDERED: LIDOCAINE 5% PATCH TD SCH ×2 (09:00)
[2022-08-07] MEDS ORDERED: ASPIRIN EC 81 MG TABLET.DR PO SCH (09:00)
[2022-08-07] MEDS ORDERED: LOSARTAN POTASSIUM 50 MG TABLET PO SCH (09:00)
[2022-08-07] MEDS ORDERED: buPROPion XL 150 MG TAB.SR.24H PO SCH (09:00)
--- NOTE | 2022-08-07 09:00 | NUR ---
SEEN BY HOSPITALIST FOR FOLLOW-UP, DISCHARGE ORDER GIVEN WITH HOME ANTIBIOTICS X14 DAYS. SEE NOTES
[2022-08-07] MEDS: METOPROLOL TARTRATE 25 MG TABLET PO SCH (09:05)
[2022-08-07] MEDS: AMLODIPINE 10 MG TABLET PO SCH (09:06)
[2022-08-07 10:44] VITALS: BP 107/65
--- NOTE | 2022-08-07 12:38 | NUR ---
DISCHARGED TO [facility] ACCOMPANIED BY DAUGHTER WITH PRIVATE CAR. DISCHARGED MEDICATION AND FOLLOW-UP INSTRUCTION GIVEN
== END 2022-08-07 12:40 | DRG 549 ==
LOC: ER 18:01 → TELE3 23:55
PROVIDERS: ADMIT Internal Medicine; ATTEND Nurse Practitioner Acute Care
PROC: 0S9C3ZX Drainage of Right Knee Joint, Percutaneous Approach, Diagnostic (ICD-10-PCS; principal; 2022-07-31)
PROC: 05HB33Z Insertion of Infusion Device into Right Basilic Vein, Percutaneous Approach (ICD-10-PCS; 2022-08-03)
PROC: 0S9C3ZX Drainage of Right Knee Joint, Percutaneous Approach, Diagnostic (ICD-10-PCS; 2022-08-03)
DX: M00.9 Pyogenic arthritis, unspecified (principal); E44.0 Moderate protein-calorie malnutrition; E87.1 Hypo-osmolality and hyponatremia; E87.6 Hypokalemia; G30.9 Alzheimer's disease, unspecified; F02.C0 Dementia in other diseases classified elsewhere, severe, without behavioral disturbance, psychotic disturbance, mood disturbance, and anxiety; D50.9 Iron deficiency anemia, unspecified; J45.909 Unspecified asthma, uncomplicated; F32.A Depression, unspecified; M25.461 Effusion, right knee; R26.2 Difficulty in walking, not elsewhere classified; W19.XXXA Unspecified fall, initial encounter; Y92.89 Other specified places as the place of occurrence of the external cause; Z88.0 Allergy status to penicillin; E78.5 Hyperlipidemia, unspecified; M11.261 Other chondrocalcinosis, right knee; R53.1 Weakness; I10 Essential (primary) hypertension; D72.829 Elevated white blood cell count, unspecified; D75.839 Thrombocytosis, unspecified; Z78.1 Physical restraint status; E83.42 Hypomagnesemia; Z20.822 Contact with and (suspected) exposure to COVID-19; E88.09 Other disorders of plasma-protein metabolism, not elsewhere classified
CPT/HCPCS: 36415; 70030-TC; 71045; 83550; 83735; 84100; 84155; 84443; 84484; 85025; 86140; 86803; 87040; 87806; 93005; A4663; C1758; G0378; J0360; J0696; J1940; J2270; J2543; J2916; J2920; J3370; J3475; J3480; J3490; J7040; J7050

== ENCOUNTER 2022-09-10 08:25 | Emergency (ER) | payer MEDICARE, BC ==
[~2022-09-10] VITALS: Ht 157.5 cm; Wt 62.6 kg
[~2022-09-10 08:25] MED LIST changes: +ACET325C7 PO; +ASPI-1420 PO; -ASPI-612 PO; +ASPI1TAB2 PO; +BUPR-53 PO; +DICLOFENAC GEL; +DOXY-226 PO; +LEVO500T90 PO; +LIDO30AD10 TD; +METO25TA6 PO; +TRAZ-182 PO
--- NOTE | 2022-09-10 08:52 | NUR ---
seen and examined by
[2022-09-10] MEDS ORDERED: ACETAMINOPHEN ES 500 MG TABLET PO ONE (09:00)
[2022-09-10] MEDS ORDERED: TRAM50TA2 PO (09:46)
[2022-09-10] MEDS ORDERED: ACET-2030 PO (09:46)
[2022-09-10] MEDS ORDERED: CELE100C PO (09:46)
[2022-09-10] MEDS ORDERED: ASPI1TAB2 PO (09:46)
[2022-09-10 10:40] LABS: HEMATOCRIT 44.8 % (31.2-41.9); MEAN CORPUSCULAR HEMOGLOBIN 27.9 uug (24.7-32.8); MEAN CORPUSCULAR VOLUME 85.9 fL (75.5-95.3); PLATELET COUNT (AUTO) 317 K/uL (179-408)
[2022-09-10 11:07] LABS: CARBON DIOXIDE 28 mmol/L (21-32); CHLORIDE 101 mmol/L (98-107); CREATININE 0.8 mg/dL (0.6-1.3); GLUCOSE 116 mg/dL (74-106); POTASSIUM 3.1 mmol/L (3.5-5.1); UREA NITROGEN, BLOOD 12 mg/dL (7-18)
[2022-09-10] MEDS ORDERED: ACETAMINOPHEN ES 500 MG TABLET ONE (11:07)
[2022-09-10 11:15] LABS: ALANINE AMINOTRANSFERASE 26 U/L (14-59); ALKALINE PHOSPHATASE 112 U/L (50-136); ASPARTATE AMINOTRANSFERASE 10 U/L (15-37); BILIRUBIN,DIRECT 0.3 mg/dL (0.0-0.2); BILIRUBIN,TOTAL 1.4 mg/dL (0.2-1.0); CREATINE KINASE, TOTAL 42 U/L (26-192); TOTAL PROTEIN, SERUM 6.7 g/dL (6.4-8.2)
[2022-09-10] MEDS ORDERED: IBUPROFEN 400 MG TABLET PO ONE (12:15)
[2022-09-10] MEDS ORDERED: ACETAMINOPHEN 650 MG/20.3 ML LIQUID UDC PO ONE (12:15)
[2022-09-10] MEDS ORDERED: IBUPROFEN 400 MG TABLET ONE (12:23)
[2022-09-10] MEDS ORDERED: ACETAMINOPHEN 650 MG/20.3 ML LIQUID UDC ONE (12:23)
--- NOTE | 2022-09-10 14:25 | NUR ---
called am professional for sheepskin pickler. ETA is within an hour
[2022-09-10 15:44] VITALS: BP 122/74
--- NOTE | 2022-09-10 15:44 | NUR ---
Patient discharged to home in stable condition. Written and verbal after care instructions given. Patient verbalizes understanding of instructions. Stressed follow up or return to ER for worsening s/s.
== END 2022-09-10 15:45 ==
LOC: ER 08:25
DX: S32.058A Other fracture of fifth lumbar vertebra, initial encounter for closed fracture (principal); E87.6 Hypokalemia; E87.1 Hypo-osmolality and hyponatremia; I10 Essential (primary) hypertension; J45.909 Unspecified asthma, uncomplicated; E78.5 Hyperlipidemia, unspecified; R07.89 Other chest pain; Z20.822 Contact with and (suspected) exposure to COVID-19; Z86.2 Personal history of diseases of the blood and blood-forming organs and certain disorders involving the immune mechanism; Z88.0 Allergy status to penicillin; Z91.018 Allergy to other foods; Z79.82 Long term (current) use of aspirin; Z79.899 Other long term (current) drug therapy; W18.39XA Other fall on same level, initial encounter; Y93.89 Activity, other specified; Y92.89 Other specified places as the place of occurrence of the external cause; Y99.8 Other external cause status
CPT/HCPCS: 36415; 70450; 71045; 72125; 72131; 72170; 84484; 85025; 85730; 93005; A4663; A9150

== ENCOUNTER 2022-11-08 06:27 | Inpatient (IN) | payer MEDICARE, BC ==
[~2022-11-08] VITALS: Ht 157.5 cm; Wt 61.0 kg
[~2022-11-08 06:27] MED LIST changes: +ACET-2030 PO; -AMLO2.5T2 PO; -ASPI-1420 PO; -ATOR10TA PO; -BUPR-53 PO; +CELE100C PO; -CHOL10005 PO; -DICLOFENAC GEL; -DOXY-226 PO; -FLUT1DIS27 IH; -LEVO500T90 PO; -LIDO30AD10 TD; -METO25TA6 PO; +TRAM50TA2 PO; -TRAZ-182 PO
[2022-11-08] MEDS ORDERED: BUPR200T31 PO (06:38)
[2022-11-08] MEDS ORDERED: MELA5TAB20 PO (06:38)
[2022-11-08] MEDS ORDERED: FLUT1BLS15 INH (06:38)
[2022-11-08] MEDS ORDERED: CAPS60CR6 TP (06:38)
[2022-11-08] MEDS ORDERED: LIDO30AD10 TP (06:38)
[2022-11-08] MEDS ORDERED: METO25TA6 PO (06:38)
[2022-11-08] MEDS ORDERED: ASPI81TA31 PO (06:38)
[2022-11-08] MEDS ORDERED: IV NORMAL SALINE 1000 ML BAG IV ONE (07:15)
[2022-11-08] MEDS ORDERED: MORPHINE SULFATE 2 MG/1 ML DISP.SYRIN IV ONE (07:15)
[2022-11-08] MEDS ORDERED: MORPHINE SULFATE 2 MG/1 ML DISP.SYRIN ONE (07:30)
[2022-11-08 08:26] LABS: *BLOOD, URINE 2+ (NEGATIVE); *COLOR,URINE YELLOW (YELLOW); *KETONES,URINE TRACE (NEGATIVE); LEUKOCYTE ESTERASE ,URINE NEGATIVE (NEGATIVE); NITRITE, URINE NEGATIVE (NEGATIVE); PH,URINE 5.5 (5.0-8.0); UGLUCOSE NEGATIVE (NEGATIVE)
[2022-11-08 08:27] LABS: *BILIRUBIN,URIN 1+ (NEGATIVE); *CLARITY,URINE CLOUDY (CLEAR)
[2022-11-08 08:40] LABS: HEMATOCRIT 45.8 % (31.2-41.9); MEAN CORPUSCULAR HEMOGLOBIN 30.5 uug (24.7-32.8); PLATELET COUNT (AUTO) 329 K/uL (179-408)
[2022-11-08] MEDS ORDERED: ACETAMINOPHEN 325 MG TABLET PO ONE ×2 (08:45→10:00)
[2022-11-08 08:50] LABS: CARBON DIOXIDE 25 mmol/L (21-32); CHLORIDE 98 mmol/L (98-107); POTASSIUM 3.3 mmol/L (3.5-5.1); UREA NITROGEN, BLOOD 16 mg/dL (7-18)
[2022-11-08] MEDS ORDERED: ACETAMINOPHEN 325 MG TABLET ONE ×2 (08:51→10:09)
[2022-11-08 08:57] LABS: RBC,URINE 0-3 /HPF (0-3)
[2022-11-08 08:58] LABS: BACTERIA,URINE MANY /HPF (NONE SEEN); SQUAMOUS EPITHELIAL CELL,UR MANY /HPF (NONE SEEN); YEAST,URINE BUDDING YEAST /HPF (NONE SEEN)
[2022-11-08 08:59] LABS: ALANINE AMINOTRANSFERASE 59 U/L (14-59); ALKALINE PHOSPHATASE 130 U/L (50-136); ASPARTATE AMINOTRANSFERASE 45 U/L (15-37); BILIRUBIN,DIRECT 0.5 mg/dL (0.0-0.2); BILIRUBIN,TOTAL 1.8 mg/dL (0.2-1.0); TOTAL PROTEIN, SERUM 7.3 g/dL (6.4-8.2)
[2022-11-08] MEDS ORDERED: CEFTRIAXONE 1 G in IV DEXTROSE 5% 50 ML IV ONE (09:45)
[2022-11-08] MEDS ORDERED: CEFTRIAXONE /D5W 50ML IVPB **ER PYXIS IV ONE (09:52)
[2022-11-08] MEDS ORDERED: VANCOMYCIN 1G/D5W 200 ML PIGGYBACK IV ONE (10:30)
[2022-11-08] MEDS ORDERED: IV NORMAL SALINE 250 ML IV ONE (11:08)
[2022-11-08] MEDS ORDERED: IOHEXOL 300MG/ML 100 ML INFUS..BTL ONE (11:08)
[2022-11-08] MEDS ORDERED: SWABABLE VALVE TRANSFER SET EA MC ONE (11:08)
[2022-11-08] MEDS ORDERED: VANCOMYCIN IV 200 ML ONE (11:18)
[2022-11-08] MEDS ORDERED: BUPR-53 PO (13:06)
[2022-11-08 13:47] VITALS: BP 159/92; TEMP 98.2; O2SAT 98
[2022-11-08] MEDS ORDERED: ASPIRIN EC 325 MG TABLET.DR PO ONE (15:30)
[2022-11-08] MEDS: MORPHINE SULFATE 2 MG/1 ML DISP.SYRIN IV PRN ×2 (16:01→20:23)
[2022-11-08] MEDS ORDERED: Medication Not On Formulary EA (Acetaminophen (Tylenol) 650 MG) PO SCH (16:45)
[2022-11-08] MEDS ORDERED: CELECOXIB 100 MG CAPSULE PO PRN (16:45)
[2022-11-08] MEDS ORDERED: TRAMADOL HCL 50 MG TABLET PO PRN (16:45)
[2022-11-08 16:52] VITALS: BP 136/50; TEMP 98.2
[2022-11-08] MEDS ORDERED: FLUTICASONE/SALMETEROL 250/50 INHALER INH SCH (17:00)
[2022-11-08] MEDS ORDERED: ONDANSETRON 4 MG/2 ML VIAL IV PRN (17:00)
[2022-11-08] MEDS ORDERED: ACETAMINOPHEN 325 MG TABLET PO PRN (17:15)
[2022-11-08] MEDS: LIDOCAINE 5% PATCH TD SCH (17:57)
[2022-11-08] MEDS: METOPROLOL TARTRATE 25 MG TABLET PO SCH (17:57)
[2022-11-08] MEDS: FLUTICASONE/VILANTEROL 1 EACH BLST.W.DEV INH SCH (18:14)
[2022-11-08 20:00] VITALS: BP 126/62; TEMP 98.2; O2SAT 99
[2022-11-08] MEDS: MELATONIN 3 MG TABLET PO SCH (20:23)
[2022-11-08] MEDS ORDERED: Medication Not On Formulary EA (Melatonin 3 MG) PO SCH (21:00)
[2022-11-09] MEDS: MORPHINE SULFATE 2 MG/1 ML DISP.SYRIN IV PRN (05:16)
[2022-11-09 07:36] LABS: HEMATOCRIT 42.9 % (31.2-41.9); MEAN CORPUSCULAR HEMOGLOBIN 30.8 uug (24.7-32.8); MEAN CORPUSCULAR VOLUME 93.2 fL (75.5-95.3); PLATELET COUNT (AUTO) 420 K/uL (179-408)
[2022-11-09 07:59] LABS: THYROID STIMULATING HORMONE 1.607 mIU/mL (0.358-3.740)
[2022-11-09 08:09] LABS: BILIRUBIN,TOTAL 1.4 mg/dL (0.2-1.0); CREATININE 0.8 mg/dL (0.6-1.3); PHOSPHOROUS 3.2 mg/dL (2.5-4.9); POTASSIUM 3.3 mmol/L (3.5-5.1); TOTAL PROTEIN, SERUM 6.5 g/dL (6.4-8.2)
[2022-11-09] MEDS: PANTOPRAZOLE SODIUM 40 MG TABLET.DR PO SCH (08:26)
[2022-11-09] MEDS: FLUTICASONE/VILANTEROL 1 EACH BLST.W.DEV INH SCH (09:30)
[2022-11-09] MEDS: buPROPion XL 150 MG TAB.SR.24H PO SCH (09:31)
[2022-11-09] MEDS: ASPIRIN 81 MG TAB.CHEW PO SCH (09:32)
[2022-11-09] MEDS: METOPROLOL TARTRATE 25 MG TABLET PO SCH ×2 (09:33→17:56)
[2022-11-09] MEDS: LIDOCAINE 5% PATCH TD SCH (09:34)
[2022-11-09] MEDS: ENOXAPARIN SODIUM 60 MG/0.6 ML DISP.SYRIN SQ SCH ×2 (09:50→20:49)
[2022-11-09] MEDS: POTASSIUM CHLORIDE 10 MEQ, LIDOCAINE-MPF 1% 1 ML in IV DEXTROSE 5% 100 ML IV SCH ×3 (11:34→15:17)
[2022-11-09 11:40] VITALS: BP_SYST 120; BP_SYST 121; BP_DIAS 54; BP_DIAS 96; TEMP 97.9; TEMP 99.2; O2SAT 95; O2SAT 96
[2022-11-09] MEDS: FLUCONAZOLE 200 MG/NS 100ML IV 100 MG in PREMIXED 1 EACH IV SCH (12:52)
[2022-11-09 16:55] VITALS: BP 116/85; TEMP 98.2; O2SAT 95
[2022-11-09 20:15] VITALS: BP 134/78; TEMP 98; O2SAT 95
[2022-11-09] MEDS: ATORVASTATIN 40 MG TABLET PO SCH (20:44)
[2022-11-09] MEDS: MELATONIN 3 MG TABLET PO SCH (20:45)
[2022-11-10 00:30] VITALS: BP 129/80; TEMP 98.5; O2SAT 95
[2022-11-10] MEDS: TEMAZEPAM 15 MG CAPSULE PO PRN (01:31)
[2022-11-10 04:00] VITALS: BP 134/84; TEMP 98.3; O2SAT 95
[2022-11-10] MEDS: PANTOPRAZOLE SODIUM 40 MG TABLET.DR PO SCH (06:22)
[2022-11-10 06:44] LABS: HEMATOCRIT 41.2 % (31.2-41.9); MEAN CORPUSCULAR HEMOGLOBIN 30.7 uug (24.7-32.8); MEAN CORPUSCULAR VOLUME 93.5 fL (75.5-95.3); PLATELET COUNT (AUTO) 418 K/uL (179-408)
[2022-11-10 07:05] LABS: BILIRUBIN,TOTAL 1.3 mg/dL (0.2-1.0); CREATININE 0.8 mg/dL (0.6-1.3); MAGNESIUM 2.1 mg/dL (1.8-2.4); PHOSPHOROUS 3.3 mg/dL (2.5-4.9); TOTAL PROTEIN, SERUM 6.6 g/dL (6.4-8.2)
[2022-11-10] MEDS: ASPIRIN 81 MG TAB.CHEW PO SCH (08:52)
[2022-11-10] MEDS: buPROPion XL 150 MG TAB.SR.24H PO SCH (08:52)
[2022-11-10] MEDS: LIDOCAINE 5% PATCH TD SCH (08:53)
[2022-11-10] MEDS: FLUTICASONE/VILANTEROL 1 EACH BLST.W.DEV INH SCH (08:54)
[2022-11-10] MEDS: ENOXAPARIN SODIUM 60 MG/0.6 ML DISP.SYRIN SQ SCH ×2 (09:06→20:25)
[2022-11-10] MEDS: METOPROLOL TARTRATE 25 MG TABLET PO SCH ×2 (09:06→16:43)
[2022-11-10] MEDS: FLUCONAZOLE 200 MG/NS 100ML IV 100 MG in PREMIXED 1 EACH IV SCH (10:59)
[2022-11-10 11:52] VITALS: BP 124/79; TEMP 97.5; O2SAT 97
[2022-11-10 15:43] VITALS: BP 142/83; TEMP 97.4; O2SAT 95
[2022-11-10 20:00] VITALS: BP 127/83; TEMP 98.1; O2SAT 93
[2022-11-10] MEDS: MELATONIN 3 MG TABLET PO SCH (20:24)
[2022-11-10] MEDS: ATORVASTATIN 40 MG TABLET PO SCH (20:24)
[2022-11-11] MEDS: TEMAZEPAM 15 MG CAPSULE PO PRN ×2 (02:34→22:35)
[2022-11-11 04:00] VITALS: BP 138/86; TEMP 98.2; O2SAT 94
[2022-11-11] MEDS: PANTOPRAZOLE SODIUM 40 MG TABLET.DR PO SCH (06:08)
[2022-11-11 07:58] LABS: CARBON DIOXIDE 23 mmol/L (21-32); CHLORIDE 100 mmol/L (98-107); CREATININE 0.8 mg/dL (0.6-1.3); PHOSPHOROUS 4.1 mg/dL (2.5-4.9); POTASSIUM 3.5 mmol/L (3.5-5.1); UREA NITROGEN, BLOOD 15 mg/dL (7-18)
[2022-11-11] MEDS: ASPIRIN 81 MG TAB.CHEW PO SCH (09:12)
[2022-11-11] MEDS: CLOPIDOGREL 75 MG TABLET PO SCH (09:12)
[2022-11-11] MEDS: LOSARTAN POTASSIUM 25 MG TABLET PO SCH (09:12)
[2022-11-11] MEDS: buPROPion XL 150 MG TAB.SR.24H PO SCH (09:13)
[2022-11-11] MEDS: LIDOCAINE 5% PATCH TD SCH (09:13)
[2022-11-11] MEDS: METOPROLOL SUCCINATE XL 50 MG TAB.SR.24H PO SCH (09:13)
[2022-11-11] MEDS: FLUTICASONE/VILANTEROL 1 EACH BLST.W.DEV INH SCH (09:14)
[2022-11-11] MEDS: FLUCONAZOLE 200 MG/NS 100ML IV 100 MG in PREMIXED 1 EACH IV SCH (11:08)
[2022-11-11 13:13] VITALS: BP 113/72; TEMP 98.1; O2SAT 96
[2022-11-11] MEDS: MELATONIN 3 MG TABLET PO SCH (20:47)
[2022-11-11] MEDS: ATORVASTATIN 40 MG TABLET PO SCH (20:47)
[2022-11-11 21:13] VITALS: BP 135/87; TEMP 98.2; O2SAT 99
[2022-11-12 00:04] VITALS: BP 128/70; TEMP 98.2; O2SAT 99
[2022-11-12] MEDS: PANTOPRAZOLE SODIUM 40 MG TABLET.DR PO SCH (06:02)
[2022-11-12] MEDS ORDERED: FLUCONAZOLE 100 MG TABLET PO SCH (09:00)
[2022-11-12] MEDS: ASPIRIN 81 MG TAB.CHEW PO SCH (09:14)
[2022-11-12] MEDS: LOSARTAN POTASSIUM 25 MG TABLET PO SCH (09:14)
[2022-11-12] MEDS: CLOPIDOGREL 75 MG TABLET PO SCH (09:14)
[2022-11-12] MEDS: buPROPion XL 150 MG TAB.SR.24H PO SCH (09:14)
[2022-11-12] MEDS: METOPROLOL SUCCINATE XL 50 MG TAB.SR.24H PO SCH (09:15)
[2022-11-12] MEDS: LIDOCAINE 5% PATCH TD SCH (09:15)
[2022-11-12] MEDS: FLUTICASONE/VILANTEROL 1 EACH BLST.W.DEV INH SCH (09:15)
[2022-11-12 12:00] VITALS: BP 120/71; TEMP 98.2; O2SAT 95
[2022-11-12 16:00] VITALS: BP 134/80; TEMP 98.6; O2SAT 96
[2022-11-12] MEDS ORDERED: ATOR40TA PO (21:31)
[2022-11-12] MEDS ORDERED: CLOP75TA15 PO (21:31)
[2022-11-12] MEDS ORDERED: FLUC100T8 PO (21:38)
[2022-11-12] MEDS ORDERED: PANT40TA2 PO (21:38)
[2022-11-12] MEDS ORDERED: TEMA15CA5 PO (21:38)
[2022-11-12] MEDS ORDERED: LOSA25TA3 PO (21:38)
== END 2022-11-12 18:26 | DRG 871 ==
LOC: ER 06:27 → TELE3 12:35 → MEDSURG3 11-12 10:16
PROVIDERS: ADMIT Internal Medicine; ATTEND Internal Medicine
DX: A41.51 Sepsis due to Escherichia coli [E. coli] (principal); E43 Unspecified severe protein-calorie malnutrition; I50.23 Acute on chronic systolic (congestive) heart failure; I21.4 Non-ST elevation (NSTEMI) myocardial infarction; N39.0 Urinary tract infection, site not specified; F02.83 Dementia in other diseases classified elsewhere, unspecified severity, with mood disturbance; E87.1 Hypo-osmolality and hyponatremia; D68.59 Other primary thrombophilia; F01.53 Vascular dementia, unspecified severity, with mood disturbance; A41.89 Other specified sepsis; K52.9 Noninfective gastroenteritis and colitis, unspecified; R74.01 Elevation of levels of liver transaminase levels; K42.9 Umbilical hernia without obstruction or gangrene; D17.71 Benign lipomatous neoplasm of kidney; G30.9 Alzheimer's disease, unspecified; E78.5 Hyperlipidemia, unspecified; E87.6 Hypokalemia; M17.0 Bilateral primary osteoarthritis of knee; I71.40 Abdominal aortic aneurysm, without rupture, unspecified; M43.19 Spondylolisthesis, multiple sites in spine; M66.0 Rupture of popliteal cyst; I73.9 Peripheral vascular disease, unspecified; K56.41 Fecal impaction; I25.5 Ischemic cardiomyopathy; I71.43 Infrarenal abdominal aortic aneurysm, without rupture; I25.2 Old myocardial infarction; I11.0 Hypertensive heart disease with heart failure; M51.36 Other intervertebral disc degeneration, lumbar region; M50.90 Cervical disc disorder, unspecified, unspecified cervical region; E80.6 Other disorders of bilirubin metabolism; J45.909 Unspecified asthma, uncomplicated; M48.56XD Collapsed vertebra, not elsewhere classified, lumbar region, subsequent encounter for fracture with routine healing; M85.80 Other specified disorders of bone density and structure, unspecified site; Z20.822 Contact with and (suspected) exposure to COVID-19; Z66 Do not resuscitate; R00.0 Tachycardia, unspecified; R29.6 Repeated falls; K57.90 Diverticulosis of intestine, part unspecified, without perforation or abscess without bleeding; D45 Polycythemia vera; R73.9 Hyperglycemia, unspecified; Z88.0 Allergy status to penicillin; Z91.018 Allergy to other foods; Z79.82 Long term (current) use of aspirin; Z79.899 Other long term (current) drug therapy; Z90.710 Acquired absence of both cervix and uterus; Z86.79 Personal history of other diseases of the circulatory system; Z86.73 Personal history of transient ischemic attack (TIA), and cerebral infarction without residual deficits
CPT/HCPCS: 36415; 70450; 71045; 72125; 72131; 72192; 73700; 83550; 83605; 83735; 83935; 84100; 84300; 84443; 84484; 84550; 85025; 85730; 87040; 93005; 93307; G0378; J0696; J1450; J1650; J2001; J2270; J3370; J3480; Q9967

== ENCOUNTER 2022-11-12 14:55 | Inpatient (IN) | payer MEDICARE, BC ==
[~2022-11-12] VITALS: Ht 157.5 cm; Wt 60.8 kg
[~2022-11-12 14:55] MED LIST changes: +ASPI81TA31 PO; +BUPR-53 PO; +CAPS60CR6 TP; +FLUT1BLS15 INH; +LIDO30AD10 TP; +MELA5TAB20 PO; +METO25TA6 PO
[2022-11-12 21:00] VITALS: BP 116/42; TEMP 98.1; O2SAT 92
[2022-11-12] MEDS ORDERED: ATOR40TA PO (21:31)
[2022-11-12] MEDS ORDERED: CLOP75TA15 PO (21:31)
[2022-11-12] MEDS ORDERED: TEMA15CA5 PO (21:38)
[2022-11-12] MEDS ORDERED: FLUC100T8 PO (21:38)
[2022-11-12] MEDS ORDERED: PANT40TA2 PO (21:38)
[2022-11-12] MEDS ORDERED: LOSA25TA3 PO (21:38)
[2022-11-12] MEDS ORDERED: TEMAZEPAM 15 MG CAPSULE PO PRN (23:15)
[2022-11-12] MEDS ORDERED: TRAMADOL HCL 50 MG TABLET PO PRN (23:15)
[2022-11-12] MEDS ORDERED: ATORVASTATIN 40 MG TABLET PO SCH (23:15)
[2022-11-12] MEDS ORDERED: ASPIRIN/ACETAMINOPHEN/CAFFEINE TABLET PO PRN (23:15)
[2022-11-12] MEDS ORDERED: MELATONIN 3 MG TABLET PO PRN (23:15)
[2022-11-12] MEDS ORDERED: CELECOXIB 100 MG CAPSULE PO PRN (23:15)
[2022-11-12] MEDS ORDERED: CAPSAICIN 0.075% CREAM 60 GM TUBE TP PRN (23:15)
[2022-11-13] MEDS ORDERED: CAPSAICIN 0.075% CREAM 60 GM TUBE TP PRN (06:00)
[2022-11-13] MEDS: PANTOPRAZOLE SODIUM 40 MG TABLET.DR PO SCH (06:30)
[2022-11-13 07:40] VITALS: BP 104/57; TEMP 97.5; O2SAT 96
[2022-11-13] MEDS: ASPIRIN 81 MG TAB.CHEW PO SCH (08:46)
[2022-11-13] MEDS: buPROPion XL 150 MG TAB.SR.24H PO SCH (08:46)
[2022-11-13] MEDS: CLOPIDOGREL 75 MG TABLET PO SCH (08:46)
[2022-11-13] MEDS: LIDOCAINE 5% PATCH TD SCH (08:46)
[2022-11-13] MEDS: FLUCONAZOLE 100 MG TABLET PO SCH (08:46)
[2022-11-13] MEDS: METOPROLOL TARTRATE 25 MG TABLET PO SCH ×2 (08:48→21:22)
[2022-11-13] MEDS: LOSARTAN POTASSIUM 25 MG TABLET PO SCH (08:48)
[2022-11-13] MEDS: FLUTICASONE/VILANTEROL 1 EACH BLST.W.DEV INH SCH (08:49)
[2022-11-13] MEDS ORDERED: LIDOCAINE 5% PATCH TD SCH (09:00)
[2022-11-13] MEDS ORDERED: LOSARTAN POTASSIUM 25 MG TABLET PO SCH (09:00)
[2022-11-13] MEDS ORDERED: CAPSAICIN 0.025% CREAM 56.6 GM TUBE TP PRN (09:30)
[2022-11-13 12:00] VITALS: BP 116/68; TEMP 98.1; O2SAT 96
[2022-11-13 16:01] VITALS: BP 120/72; TEMP 98.4; O2SAT 93
[2022-11-13 20:00] VITALS: BP 107/70; TEMP 98.7; O2SAT 94
[2022-11-13] MEDS: ATORVASTATIN 40 MG TABLET PO SCH (21:22)
[2022-11-13] MEDS: MELATONIN 3 MG TABLET PO SCH (21:22)
[2022-11-14 04:00] VITALS: BP 111/66; TEMP 98.2; O2SAT 93
[2022-11-14] MEDS: PANTOPRAZOLE SODIUM 40 MG TABLET.DR PO SCH (06:36)
[2022-11-14 07:07] LABS: BASOPHILS # (AUTO) 0.1 K/UL (0.0-0.2); BASOPHILS % (AUTO) 0.8 % (0.0-2.0); EOSINOPHILS # (AUTO) 0.1 K/uL (0.0-0.7); EOSINOPHILS % (AUTO) 1.8 % (0.0-7.0); HEMATOCRIT 37.7 % (31.2-41.9); HEMOGLOBIN 12.4 g/dL (10.9-14.3); LYMPHOCYTES % (AUTO) 24.2 % (20.5-51.5); MEAN CORPUSCULAR HEMOGLOBIN 30.6 uug (24.7-32.8); MEAN CORPUSCULAR HGB CONC 33 g/dL (32.3-35.6); MEAN CORPUSCULAR VOLUME 92.8 fL (75.5-95.3); MONOCYTES % (AUTO) 11.9 % (0.0-11.0); NEUTROPHILS # (AUTO) 5.1 K/uL (1.8-8.9); NEUTROPHILS % (AUTO) 61.3 % (38.5-71.5); PLATELET COUNT (AUTO) 528 K/uL (179-408); RED BLOOD CELL COUNT(AUTO) 4.06 MIL/uL (3.63-4.92); RED CELL DISTRIBUTION WIDTH 17.5 % (12.3-17.7); WHITE BLOOD COUNT (AUTO) 8.3 K/uL (3.8-11.8)
[2022-11-14 07:20] LABS: DIFFERENTIAL COMMENT 1
[2022-11-14 07:34] LABS: ALANINE AMINOTRANSFERASE 22 U/L (14-59); ALBUMIN 2.2 g/dL (3.4-5.0); ALKALINE PHOSPHATASE 99 U/L (50-136); ASPARTATE AMINOTRANSFERASE 24 U/L (15-37); BILIRUBIN,TOTAL 0.5 mg/dL (0.2-1.0); CALCIUM 8.4 mg/dL (8.5-10.1); CARBON DIOXIDE 25 mmol/L (21-32); CHLORIDE 100 mmol/L (98-107); CREATININE 0.9 mg/dL (0.6-1.3); GLUCOSE 103 mg/dL (74-106); PHOSPHOROUS 3.9 mg/dL (2.5-4.9); POTASSIUM 3.7 mmol/L (3.5-5.1); SODIUM SERUM 134 mmol/L (136-145); TOTAL PROTEIN, SERUM 6.2 g/dL (6.4-8.2); UREA NITROGEN, BLOOD 15 mg/dL (7-18)
[2022-11-14 07:48] VITALS: BP 127/79; TEMP 97.6; O2SAT 93
[2022-11-14] MEDS: LOSARTAN POTASSIUM 25 MG TABLET PO SCH (08:37)
[2022-11-14] MEDS: ASPIRIN 81 MG TAB.CHEW PO SCH (08:37)
[2022-11-14] MEDS: LIDOCAINE 5% PATCH TD SCH (08:37)
[2022-11-14] MEDS: METOPROLOL SUCCINATE XL 50 MG TAB.SR.24H PO SCH (08:38)
[2022-11-14] MEDS: FLUCONAZOLE 100 MG TABLET PO SCH (08:38)
[2022-11-14] MEDS: CLOPIDOGREL 75 MG TABLET PO SCH (08:38)
[2022-11-14] MEDS: buPROPion XL 150 MG TAB.SR.24H PO SCH (08:38)
[2022-11-14] MEDS: FLUTICASONE/VILANTEROL 1 EACH BLST.W.DEV INH SCH (09:56)
[2022-11-14 16:35] VITALS: BP 139/80; TEMP 97.5; O2SAT 97
[2022-11-14 20:00] VITALS: BP 116/77; TEMP 98.7; O2SAT 94
[2022-11-14] MEDS: ATORVASTATIN 40 MG TABLET PO SCH (20:28)
[2022-11-14] MEDS: MELATONIN 3 MG TABLET PO SCH (20:29)
[2022-11-14] MEDS: TEMAZEPAM 15 MG CAPSULE PO PRN (23:12)
[2022-11-15 04:00] VITALS: BP 126/72; TEMP 98.6; O2SAT 93
[2022-11-15] MEDS: PANTOPRAZOLE SODIUM 40 MG TABLET.DR PO SCH (06:06)
[2022-11-15] MEDS: FLUTICASONE/VILANTEROL 1 EACH BLST.W.DEV INH SCH (08:26)
[2022-11-15] MEDS: LOSARTAN POTASSIUM 25 MG TABLET PO SCH (08:27)
[2022-11-15] MEDS: CLOPIDOGREL 75 MG TABLET PO SCH (08:27)
[2022-11-15] MEDS: ASPIRIN 81 MG TAB.CHEW PO SCH (08:27)
[2022-11-15] MEDS: buPROPion XL 150 MG TAB.SR.24H PO SCH (08:28)
[2022-11-15] MEDS: METOPROLOL SUCCINATE XL 50 MG TAB.SR.24H PO SCH (08:28)
[2022-11-15] MEDS: LIDOCAINE 5% PATCH TD SCH (08:28)
[2022-11-15 08:40] VITALS: BP 111/77; TEMP 98.1; O2SAT 97
[2022-11-15 16:05] VITALS: BP 109/70; TEMP 98; O2SAT 96
[2022-11-15 20:28] VITALS: BP 125/78; TEMP 98.3; O2SAT 95
[2022-11-15] MEDS: ATORVASTATIN 40 MG TABLET PO SCH (21:38)
[2022-11-15] MEDS: MELATONIN 3 MG TABLET PO SCH (21:39)
[2022-11-15] MEDS: TEMAZEPAM 15 MG CAPSULE PO PRN (21:42)
[2022-11-16 04:54] VITALS: BP 117/79; TEMP 98.3; O2SAT 93
[2022-11-16] MEDS: PANTOPRAZOLE SODIUM 40 MG TABLET.DR PO SCH (06:10)
[2022-11-16 07:40] VITALS: BP 122/79; TEMP 98.2; O2SAT 92
[2022-11-16] MEDS: CLOPIDOGREL 75 MG TABLET PO SCH (09:00)
[2022-11-16] MEDS: ASPIRIN 81 MG TAB.CHEW PO SCH (09:22)
[2022-11-16] MEDS: METOPROLOL SUCCINATE XL 50 MG TAB.SR.24H PO SCH (09:23)
[2022-11-16] MEDS: LOSARTAN POTASSIUM 25 MG TABLET PO SCH (09:24)
[2022-11-16] MEDS: buPROPion XL 150 MG TAB.SR.24H PO SCH (09:24)
[2022-11-16] MEDS: LIDOCAINE 5% PATCH TD SCH (09:25)
[2022-11-16] MEDS: FLUTICASONE/VILANTEROL 1 EACH BLST.W.DEV INH SCH (09:26)
[2022-11-16] MEDS: ENSURE ENLIVE (VAN) 240 ML LIQUID PO SCH (17:46)
[2022-11-16] MEDS: ATORVASTATIN 40 MG TABLET PO SCH (20:04)
[2022-11-16] MEDS: MELATONIN 3 MG TABLET PO SCH (20:04)
[2022-11-16 20:31] VITALS: BP 109/75; TEMP 98.4; O2SAT 92
[2022-11-16] MEDS: TEMAZEPAM 15 MG CAPSULE PO PRN (23:59)
[2022-11-17] MEDS: BENZONATATE 100 MG CAPSULE PO PRN ×3 (00:40→20:11)
[2022-11-17 04:50] VITALS: BP 133/79; TEMP 98.3; O2SAT 91
[2022-11-17] MEDS: PANTOPRAZOLE SODIUM 40 MG TABLET.DR PO SCH (06:12)
[2022-11-17 07:16] LABS: ALBUMIN 2.3 g/dL (3.4-5.0); BILIRUBIN,TOTAL 0.4 mg/dL (0.2-1.0); CALCIUM 8.4 mg/dL (8.5-10.1); CREATININE 0.9 mg/dL (0.6-1.3); TOTAL PROTEIN, SERUM 5.9 g/dL (6.4-8.2)
[2022-11-17 07:44] VITALS: BP 124/80; TEMP 97.8; O2SAT 94
[2022-11-17] MEDS: ASPIRIN 81 MG TAB.CHEW PO SCH (09:46)
[2022-11-17] MEDS: FLUTICASONE/VILANTEROL 1 EACH BLST.W.DEV INH SCH (09:46)
[2022-11-17] MEDS: buPROPion XL 150 MG TAB.SR.24H PO SCH (09:47)
[2022-11-17] MEDS: CLOPIDOGREL 75 MG TABLET PO SCH (09:47)
[2022-11-17] MEDS: METOPROLOL SUCCINATE XL 50 MG TAB.SR.24H PO SCH (09:47)
[2022-11-17] MEDS: LOSARTAN POTASSIUM 25 MG TABLET PO SCH (09:48)
[2022-11-17] MEDS: ENSURE ENLIVE (VAN) 240 ML LIQUID PO SCH (09:48)
[2022-11-17] MEDS: LIDOCAINE 5% PATCH TD SCH (09:48)
[2022-11-17 16:14] VITALS: BP 124/85; TEMP 97.7; O2SAT 93
[2022-11-17] MEDS: VITAMINS A AND D OINT 42 GM TUBE TP SCH (17:26)
[2022-11-17 20:00] VITALS: BP 129/80; TEMP 98.2; O2SAT 95
[2022-11-17] MEDS: MELATONIN 3 MG TABLET PO SCH (20:11)
[2022-11-17] MEDS: ATORVASTATIN 40 MG TABLET PO SCH (20:11)
[2022-11-18] MEDS: TEMAZEPAM 15 MG CAPSULE PO PRN (01:37)
[2022-11-18 04:00] VITALS: BP 121/59; TEMP 97.8; O2SAT 93
[2022-11-18] MEDS: PANTOPRAZOLE SODIUM 40 MG TABLET.DR PO SCH (06:10)
[2022-11-18 07:58] VITALS: BP 124/82; TEMP 97.7; O2SAT 94
[2022-11-18] MEDS: CLOPIDOGREL 75 MG TABLET PO SCH (09:39)
[2022-11-18] MEDS: ASPIRIN 81 MG TAB.CHEW PO SCH (09:39)
[2022-11-18] MEDS: FLUTICASONE/VILANTEROL 1 EACH BLST.W.DEV INH SCH (09:39)
[2022-11-18] MEDS: buPROPion XL 150 MG TAB.SR.24H PO SCH (09:39)
[2022-11-18] MEDS: METOPROLOL SUCCINATE XL 50 MG TAB.SR.24H PO SCH (09:39)
[2022-11-18] MEDS: LIDOCAINE 5% PATCH TD SCH (09:40)
[2022-11-18] MEDS: LOSARTAN POTASSIUM 25 MG TABLET PO SCH (09:40)
[2022-11-18] MEDS: VITAMINS A AND D OINT 42 GM TUBE TP SCH ×3 (09:40→17:07)
[2022-11-18] MEDS: ENSURE ENLIVE (VAN) 240 ML LIQUID PO SCH (10:01)
[2022-11-18] MEDS: BENZONATATE 100 MG CAPSULE PO PRN ×2 (10:48→17:23)
[2022-11-18] MEDS ORDERED: ALBUTEROL SULFATE 8 GM HFA.AER.AD IH PRN (13:30)
[2022-11-18] MEDS ORDERED: ALBUTEROL SULFATE 2.5 MG/3 ML NEBU NEB PRN (13:45)
[2022-11-18 16:00] VITALS: BP 111/70; TEMP 97.8; O2SAT 94
[2022-11-18 20:00] VITALS: BP 119/79; TEMP 98.7; O2SAT 95
[2022-11-18] MEDS: ATORVASTATIN 40 MG TABLET PO SCH (20:38)
[2022-11-18] MEDS: MELATONIN 3 MG TABLET PO SCH (20:38)
[2022-11-19 04:00] VITALS: BP 132/87; TEMP 98.2; O2SAT 96
[2022-11-19] MEDS: BENZONATATE 100 MG CAPSULE PO PRN ×2 (05:31→20:29)
[2022-11-19] MEDS: PANTOPRAZOLE SODIUM 40 MG TABLET.DR PO SCH (06:04)
[2022-11-19 07:56] VITALS: BP 131/94; TEMP 97.7; O2SAT 98
[2022-11-19] MEDS: FLUTICASONE/VILANTEROL 1 EACH BLST.W.DEV INH SCH (08:38)
[2022-11-19] MEDS: buPROPion XL 150 MG TAB.SR.24H PO SCH (08:38)
[2022-11-19] MEDS: CLOPIDOGREL 75 MG TABLET PO SCH (08:38)
[2022-11-19] MEDS: LIDOCAINE 5% PATCH TD SCH (08:39)
[2022-11-19] MEDS: METOPROLOL SUCCINATE XL 50 MG TAB.SR.24H PO SCH (08:39)
[2022-11-19] MEDS: ASPIRIN 81 MG TAB.CHEW PO SCH (08:39)
[2022-11-19] MEDS: LOSARTAN POTASSIUM 25 MG TABLET PO SCH (08:39)
[2022-11-19] MEDS: ENSURE ENLIVE (VAN) 240 ML LIQUID PO SCH (08:42)
[2022-11-19] MEDS: VITAMINS A AND D OINT 42 GM TUBE TP SCH ×3 (08:42→16:37)
[2022-11-19 15:46] VITALS: BP 127/87; TEMP 97.8; O2SAT 98
[2022-11-19 20:00] VITALS: BP 114/76; TEMP 98.5; O2SAT 96
[2022-11-19] MEDS: ATORVASTATIN 40 MG TABLET PO SCH (20:28)
[2022-11-19] MEDS: MELATONIN 3 MG TABLET PO SCH (20:29)
[2022-11-19 22:55] VITALS: O2SAT 93
[2022-11-19 23:05] VITALS: O2SAT 96
[2022-11-20] VITALS (8 sets, daily range): BP systolic 107–134; BP diastolic 66–88; TEMP 98.2–98.4; O2SAT 91–99
[2022-11-20] MEDS: BENZONATATE 100 MG CAPSULE PO PRN ×2 (05:26→21:14)
[2022-11-20 05:39] LABS: *BILIRUBIN,URIN NEGATIVE (NEGATIVE); *BLOOD, URINE NEGATIVE (NEGATIVE); *CLARITY,URINE CLEAR (CLEAR); *COLOR,URINE YELLOW (YELLOW); *KETONES,URINE NEGATIVE (NEGATIVE); *PROTEIN,URINE TRACE (NEGATIVE); *UROBILINOGEN,URINE 0.2 E.U./dl (NORMAL); LEUKOCYTE ESTERASE ,URINE NEGATIVE (NEGATIVE); NITRITE, URINE NEGATIVE (NEGATIVE); PH,URINE 5.5 (5.0-8.0); UGLUCOSE NEGATIVE (NEGATIVE)
[2022-11-20] MEDS: PANTOPRAZOLE SODIUM 40 MG TABLET.DR PO SCH (06:07)
[2022-11-20 07:25] LABS: ALANINE AMINOTRANSFERASE 33 U/L (14-59); ALBUMIN 2.6 g/dL (3.4-5.0); ALKALINE PHOSPHATASE 100 U/L (50-136); ASPARTATE AMINOTRANSFERASE 39 U/L (15-37); BILIRUBIN,TOTAL 0.6 mg/dL (0.2-1.0); CALCIUM 8.2 mg/dL (8.5-10.1); CARBON DIOXIDE 21 mmol/L (21-32); CHLORIDE 95 mmol/L (98-107); CREATININE 1.1 mg/dL (0.6-1.3); GLUCOSE 145 mg/dL (74-106); POTASSIUM 4.9 mmol/L (3.5-5.1); SODIUM SERUM 126 mmol/L (136-145); TOTAL PROTEIN, SERUM 6.6 g/dL (6.4-8.2); UREA NITROGEN, BLOOD 23 mg/dL (7-18)
[2022-11-20] MEDS: ASPIRIN 81 MG TAB.CHEW PO SCH (09:10)
[2022-11-20] MEDS: LOSARTAN POTASSIUM 25 MG TABLET PO SCH (09:10)
[2022-11-20] MEDS: buPROPion XL 150 MG TAB.SR.24H PO SCH (09:10)
[2022-11-20] MEDS: METOPROLOL SUCCINATE XL 50 MG TAB.SR.24H PO SCH (09:11)
[2022-11-20] MEDS: CLOPIDOGREL 75 MG TABLET PO SCH (09:11)
[2022-11-20] MEDS: FLUTICASONE/VILANTEROL 1 EACH BLST.W.DEV INH SCH (09:11)
[2022-11-20] MEDS: VITAMINS A AND D OINT 42 GM TUBE TP SCH ×3 (09:12→16:25)
[2022-11-20] MEDS: LIDOCAINE 5% PATCH TD SCH (09:13)
[2022-11-20] MEDS: ENSURE ENLIVE (VAN) 240 ML LIQUID PO SCH (09:14)
[2022-11-20] MEDS ORDERED: ONDANSETRON ODT 4 MG TAB.RAPDIS SL PRN (12:45)
[2022-11-20 18:46] LABS: *BILIRUBIN,URIN NEGATIVE (NEGATIVE); *BLOOD, URINE NEGATIVE (NEGATIVE); *CLARITY,URINE CLEAR (CLEAR); *COLOR,URINE YELLOW (YELLOW); *KETONES,URINE NEGATIVE (NEGATIVE); *PROTEIN,URINE NEGATIVE (NEGATIVE); *UROBILINOGEN,URINE 0.2 E.U./dl (NORMAL); LEUKOCYTE ESTERASE ,URINE NEGATIVE (NEGATIVE); NITRITE, URINE NEGATIVE (NEGATIVE); PH,URINE 5.5 (5.0-8.0); UGLUCOSE NEGATIVE (NEGATIVE)
[2022-11-20] MEDS: ATORVASTATIN 40 MG TABLET PO SCH (20:28)
[2022-11-20] MEDS: MELATONIN 3 MG TABLET PO SCH (20:29)
== END 2022-11-20 22:30 | DRG 947 ==
PROVIDERS: ADMIT Physical Medicine & Rehabilitation Pain Medicine; ATTEND Physical Medicine & Rehabilitation Pain Medicine
DX: R53.1 Weakness (principal); E43 Unspecified severe protein-calorie malnutrition; I21.A1 Myocardial infarction type 2; D68.59 Other primary thrombophilia; N39.0 Urinary tract infection, site not specified; E87.1 Hypo-osmolality and hyponatremia; R17 Unspecified jaundice; E78.5 Hyperlipidemia, unspecified; R29.6 Repeated falls; F03.90 Unspecified dementia, unspecified severity, without behavioral disturbance, psychotic disturbance, mood disturbance, and anxiety; I10 Essential (primary) hypertension; I25.5 Ischemic cardiomyopathy; I71.40 Abdominal aortic aneurysm, without rupture, unspecified; I73.9 Peripheral vascular disease, unspecified; K29.70 Gastritis, unspecified, without bleeding; K42.9 Umbilical hernia without obstruction or gangrene; K57.90 Diverticulosis of intestine, part unspecified, without perforation or abscess without bleeding; K56.41 Fecal impaction; Z91.81 History of falling; D17.71 Benign lipomatous neoplasm of kidney; E88.09 Other disorders of plasma-protein metabolism, not elsewhere classified; I25.10 Atherosclerotic heart disease of native coronary artery without angina pectoris; I70.0 Atherosclerosis of aorta; M48.56XD Collapsed vertebra, not elsewhere classified, lumbar region, subsequent encounter for fracture with routine healing; M51.36 Other intervertebral disc degeneration, lumbar region; Z66 Do not resuscitate; Z86.73 Personal history of transient ischemic attack (TIA), and cerebral infarction without residual deficits; Z86.79 Personal history of other diseases of the circulatory system; Z87.891 Personal history of nicotine dependence; Z88.0 Allergy status to penicillin; R26.81 Unsteadiness on feet
CPT/HCPCS: 36415; 83735; 84100; 85025; 94640; 94664; 97535-GO-CO; A6209; A9150; C1758; Q0162